=== PATIENT | female | born 1950 | race Caucasian/White ===

== ENCOUNTER 2017-07-22 16:16 | Emergency (ER) | payer OTHER ==
[~2017-07-22] VITALS: Ht 160 cm; Wt 59.0 kg
[~2017-07-22 16:16] MED LIST: FENTANYL1 EAC4 TD; GABAPENTIN600 MG PO; LISINOPRIL5 MG PO; METOPROLOL SUCC25 MG PO; PROTONIX40 MG PO; SYNTHROID75 MCG PO; TRAM1TAB98 PO; XYLOCAINE JELLY TOP
[2017-07-22] MEDS ORDERED: DURAGESIC1 EAC1 (16:43)
== END 2017-07-22 20:33 | disposition home or self-care (01) ==
LOC: ER 16:16
DX: T83.098A Other mechanical complication of other urinary catheter, initial encounter (principal)

== ENCOUNTER 2019-04-13 06:00 | Day surgery (SDC) | payer OTHER ==
[~2019-04-13 06:00] MED LIST changes: +DICY20TA PO; +DURAGESIC1 EAC1; +PEPCID20 MG PO
[2019-04-13] MEDS ORDERED: PERCOCET 5-3251 EACH PO (09:51)
== END 2019-04-13 11:05 | disposition home or self-care (01) ==
LOC: CIR.AMB 06:00
DX: C76.3 Malignant neoplasm of pelvis (principal)

== ENCOUNTER 2021-04-06 06:50 | Day surgery (SDC) | payer OTHER ==
[~2021-04-06 06:50] MED LIST changes: +PERCOCET 5-3251 EACH PO
== END 2021-04-06 12:25 | disposition home or self-care (01) ==
LOC: AMB-ENDOS 06:50
PROVIDERS: ATTEND Surgery
DX: D12.0 Benign neoplasm of cecum (principal); Z20.822 Contact with and (suspected) exposure to COVID-19